=== PATIENT | male | born 1985 | race African-American/Black ===

== ENCOUNTER 2020-07-20 21:10 | Emergency (ER) | payer MEDICAID ==
[~2020-07-20] VITALS: Ht 188 cm; Wt 99.8 kg
--- NOTE | ~2020-07-20 | EMS ---
[address] [place] [address] EMS Patient Care Report Name: ERYN PAREDES Room: PRE M.R.#: [id number] Admission: Attend Phys: Discharge: Date of : 83 Report #: [id number] THIS REPORT FOR: //name// Report Transmitted: 07/20/2020 22:38 EMS Care Summary FRANKIE STAFFORD Incident 3020 @ 07/20/2020 20:34 Incident Location [address] [place], [place] [id number] Patient Eryn Urena Male, 35 Years 1985 Patient Address none [place] [id number] Patient History Anxiety disorder, unspecified,Schizoaffective Disorder,Hypertension (HTN), Patient Allergies No known allergies, Chief Complaint Psych/Behavioral Crisis Disposition Transported No Lights/[place] Dispatch Reason Falls Transported To [facility] Narrative [facility] RESPONDED TO THE ABOVE ADDRESS REFERENCE AN UNKNOWN PROBLEM. WE STAGED THIS CALL FOR LAW ENFORCEMENT. WE RESPONDED TO THE SCENE AFTER LAW ENFORCEMENT CLEARED THE SCENE SAFE. WE ARRIVED AND MADE CONTACT WITH ERYN. HE COMPLAINS OF BEING UNDER TOO MUCH PRESSURE AND LEFT HEAD PAIN. HE WALKED TO THE UNIT WITH ASSISTANCE. HE SAT ON THE COT. WE SECURED ERYN ON THE COT USING ALL OF THE REQUIRED RESTRAINT DEVICES. WE EVALUATED HIM AND TOOK VITAL SIGNS. [address] [place] [address] EMS Patient Care Report Name: ERYN PAREDES [facility] [id number] Admission: Attend Phys: Discharge: Date of : 83 Report #: [id number] TRANSPORT WAS STARTED TO THE HOSPITAL OF HIS CHOICE. TRANSPORT WAS WITHOUT INCIDENT. AT [facility] WE UNLOADED THE OCCUPIED COT. WE WHEELED MICHAEL TO ROOM ER 8. I REPORTED TO JOSÉ SALCEDO AND RELEASED CARE TO [facility]. Initial Vitals @20:52Pain: 08/07, @20:46Pain: 07/07, @20:46SpO2: 100, @20:55SpO2: 100, @21:01SpO2: 100, @20:46P: 113,R: 20,BP: 141/90, @20:56P: 103,R: 18,BP: 151/95, @20:46GCS: 14, @20:56GCS: 14, @20:52Glucose: 149, Assessments @20:46MENTAL:SKIN:HEENT:LUNG SOUNDS:ABDOMEN:PELVIS//GI:EXTREMITIES:PULSE:NEURO: Impression Mental disorder Timeline 20:46,Call Received 20:26,Dispatch Notified 20:26,Psap Call 20:34,Dispatched 20:34,En Route 20:34,On Scene 20:46,At Patient 20:46,BP: / M,PULSE: ,RR: R,SPO2: Ox,ETCO2: ,BG: ,PAIN: 1,GCS: , 20:46,BP: / M,PULSE: ,RR: R,SPO2: 100 Ox,ETCO2: ,BG: ,PAIN: ,GCS: , 20:46,BP: 141/90 M,PULSE: 113,RR: 20 R,SPO2: Ox,ETCO2: ,BG: ,PAIN: ,GCS: , 20:46,BP: / M,PULSE: ,RR: R,SPO2: Ox,ETCO2: ,BG: ,PAIN: ,GCS: 14, 20:52,Depart Scene 20:52,BP: / M,PULSE: ,RR: R,SPO2: Ox,ETCO2: ,BG: ,PAIN: 2,GCS: , 20:52,BP: / M,PULSE: ,RR: R,SPO2: Ox,ETCO2: ,B,PAIN: ,GCS: , 20:55,BP: / M,PULSE: ,RR: R,SPO2: 100 Ox,ETCO2: ,BG: ,PAIN: ,GCS: , 20:56,BP: 151/95 M,PULSE: 103,RR: 18 R,SPO2: Ox,ETCO2: ,BG: ,PAIN: ,GCS: , 20:56,BP: / M,PULSE: ,RR: R,SPO2: Ox,ETCO2: ,BG: ,PAIN: ,GCS: 14, 21:01,BP: / M,PULSE: ,RR: R,SPO2: 100 Ox,ETCO2: ,BG: ,PAIN: ,GCS: , 21:04,At Destination 21:18,[place] [address] EMS Patient Care Report Name: ERYN PAREDES Room: PRE M.R.#: [id number] Admission: Attend Phys: Discharge: Date of : 83 Report #: [id number] Disclaimer [email or web address] Copyright [employer] This EMS Care Summary contains data elements from the applicable legal record (which may be displayed differently). It is designed to provide pertinent information for the following purposes: continuity of care, clinical quality, and state data reporting. The complete legal record is available to ED staff and administrators of the receiving hospital in [facility]'s Patient Tracker. All data is provided "as is."
[2020-07-20 22:23] LABS: HEMATOCRIT 38.2 % (42.0-52.0); HEMOGLOBIN 12.9 gm/dL (14.0-18.0); MCH 26.9 pg (26.0-34.0); MCHC 33.9 g/dL (28.0-37.0); MCV 79.3 fL (80.0-100.0); MPV 7.6 fl. (7.2-11.1); RBC 4.82 mil/uL (4.50-6.00); RDW-CV 14.7 % (10.5-14.5); WBC 12.8 thou/uL (4.0-11.0)
[2020-07-20 22:29] LABS: URINE BILIRUBIN NEGATIVE (Negative); URINE BLOOD NEGATIVE (Negative); URINE CLARITY CLEAR; URINE COLOR YELLOW; URINE GLUCOSE-RANDOM NEGATIVE (Negative); URINE KETONES 1+ (Negative); URINE LEUKOCYTES NEGATIVE (Negative); URINE NITRITE NEGATIVE (Negative); URINE PROTEIN TRACE (Negative); URINE SPECIFIC GRAVITY >= 1.030 (1.005-1.030); URINE UROBILINOGEN 0.2 E.U./dl (0.2-1.0)
[2020-07-20 22:32] LABS: CREATININE 1.2 mg/dL (0.6-1.3); POTASSIUM 3.6 mmol/L (3.5-5.1)
[2020-07-20 22:36] LABS: ALBUMIN 4.6 g/dL (3.4-5.0); TOTAL BILIRUBIN 0.8 mg/dL (<0.1-1.0); TOTAL PROTEIN 8.5 g/dL (6.4-8.2)
[2020-07-20 22:39] LABS: AMP/METHAMP POSITIVE (Negative); BARBITURATES Negative (Negative); BENZODIAZEPINES Negative (Negative); COCAINE Negative (Negative); METHADONE Negative (Negative); OPIATES Negative (Negative); PCP Negative (Negative); THC Negative (Negative)
[2020-07-20 22:40] LABS: SALICYLATE < 2.8 mg/dL (2.8-20.0)
[2020-07-20 22:41] LABS: ACETAMINOPHEN < 2 ug/mL (10-30); ALCOHOL < 10 mg/dL (<10)
[2020-07-21 01:59] VITALS: BP 150/90
== END 2020-07-21 01:59 | disposition home or self-care (01) ==
LOC: M.ERS 21:10 → EDBD 21:10 → M.ERS 07-21 01:59
PROVIDERS: Personal Emergency Response Attendant
DX: F19.959 Other psychoactive substance use, unspecified with psychoactive substance-induced psychotic disorder, unspecified (principal); R51.9 Headache, unspecified; M25.552 Pain in left hip; W19.XXXA Unspecified fall, initial encounter; Y93.89 Activity, other specified; Y92.89 Other specified places as the place of occurrence of the external cause; Y99.8 Other external cause status